=== PATIENT | female | born 2000 | race American Indian/Alaskan Native ===

== ENCOUNTER 2019-11-01 01:18 | Outpatient (CLI) | payer OTHER ==
[2019-11-01 01:30] VITALS: BP 137/78
[2019-11-01] MEDS ORDERED: LACTATED RINGERS 1,000 ML IV ONE (01:38)
[2019-11-01 02:19] LABS: Amphetamine Screen,Urine PRESUMPTIVE NEGATIVE; Benzodiazepines Screen,Urine PRESUMPTIVE NEGATIVE; Cocaine Screen,Urine PRESUMPTIVE NEGATIVE; Methadone Screen,Urine PRESUMPTIVE NEGATIVE; Opiate Screen,Urine PRESUMPTIVE NEGATIVE
[2019-11-01 02:32] LABS: Cannabinoid Screen,Urine PRESUMPTIVE POSITIVE
[2019-11-01 02:35] LABS: Bilirubin,Urine NEG (Negative); Blood,Urine NEG (Negative); Color,Urine Yellow (Yellow); Mucus,Urine FEW /HPF; Urobilinogen,Urine < 2.0 mg/dL (<2.0)
== END 2019-11-01 04:10 | disposition home or self-care (01) ==
LOC: TRG 01:18 → APU 01:25 → TRG 04:10
PROVIDERS: ATTEND Obstetrics & Gynecology
DX: O62.9 Abnormality of forces of labor, unspecified (principal); Z3A.34 34 weeks gestation of pregnancy
CPT/HCPCS: 59025; 80307; 81001; 96361; 96365; J0690; J7120; 96360

== ENCOUNTER 2020-05-15 16:52 | Emergency (ER) | payer OTHER ==
--- NOTE | 2020-05-15 18:07 | Emergency Department Report ---
HPI - General Time Seen by Provider: 05/15/20 17:32 - HPI HPI: Room 15 The patient is a 19-year-old female present with a chief complaint of altered mental status. Patient apparently has a history of PTSD and no other known psychiatric history. The mother stated that the patient had been acting strangely all day. Police were called and reportedly found out the patient had an outstanding warrant for arrest. It is then reported that the patient began behaving even more strangely after this was discovered but no specific behavior was described. The patient reportedly wandering around the emergency department touching things inappropriately. The patient tells me that she is 14 years old and she denies complaints. Patient denies thoughts of wanting to harm herself o r others ED Past Medical Hx - Past Medical History Hx Psychiatric Treatment: Yes (PTSD) - Surgical History Past Surgical History?: No - Family History Family history: no significant - Social History Smoking Status: Never Smoker Substance Use Type: None ED Review of Systems ROS: Stated complaint: MENTAL HEALTH Other details as noted in HPI Constitutional: no symptoms reported Eyes: denies: eye pain ENT: denies: throat pain Respiratory: no symptoms reported Cardiovascular: denies: chest pain Endocrine: no symptoms reported Gastrointestinal: denies: abdominal pain Genitourinary: denies: dysuria Musculoskeletal: denies: back pain Psychiatric: denies: homicidal thoughts, suicidal thoughts Physical Exam - Physical Exam Physical Exam: GENERAL: The patient is well-developed well-nourished female sitting in chair not appearing to be in acute distress HEENT: Normocephalic. Atraumatic. Extraocular motions are intact. Patient has moist mucous membranes. NECK: Supple. Trachea midline CHEST/LUNGS: Clear to auscultation. There is no respiratory distress noted. HEART/CARDIOVASCULAR: Regular. There is no tachycardia. There is no gallop rub or murmur. ABDOMEN: Abdomen is soft, nontender. Patient has normal bowel sounds. There is no abdominal distention. SKIN: There is no rash. There is no edema. There is no diaphoresis. NEURO: The patient is awake, alert, and oriented. The patient is cooperative. The patient has no focal neurologic deficits. The patient has normal speech and gait. MUSCULOSKELETAL: There is no evidence of acute injury. ED Medical Decision Making - Lab Data Result diagrams: 05/15/20 17:45 05/15/20 17:45 - Medical Decision Making Patient told mental health validation consultant Aaliyah that she is suicidal. Please refer to mental health note. Patient placed on 1013 - Differential Diagnosis PTSD, schizophrenia, adjustment disorder Critical care attestation.: If time is entered above; I have spent that time in minutes in the direct care of this critically ill patient, excluding procedure time. ED Disposition Clinical Impression: Suicidal ideation Disposition: [id number]/TX-[id number] PSY HOSP/PSY UNIT Is pt being admited?: No Does the pt Need Aspirin: No Condition: Stable
[2020-05-15 18:11] LABS: Basophils % (Auto) 0.7 % (0.0-1.8); Eosinophils # (Auto) 0.1 K/mm3 (0.0-0.4); Eosinophils % (Auto) 1.2 % (0.0-4.3); Hemoglobin 14.4 gm/dl (10.1-14.3); Lymphocytes # (Auto) 2.3 K/mm3 (1.2-5.4); Lymphocytes % (Auto) 33.8 % (13.4-35.0); Mean Corpuscular HGB Conc 34 % (30-34); Mean Corpuscular Volume 91 fl (79-97); Monocytes # (Auto) 0.6 K/mm3 (0.0-0.8); Monocytes % (Auto) 9.2 % (0.0-7.3); Platelet Count 260 K/mm3 (140-440); Red Blood Count 4.75 M/mm3 (3.65-5.03); Red Cell Distribution Width 14.2 % (13.2-15.2)
[2020-05-15 18:25] LABS: Blood Urea Nitrogen 14 mg/dL (7-17); Calcium 9.8 mg/dL (8.4-10.2); Hemolysis Index 14
[2020-05-15 18:26] LABS: BUN/Creatinine Ratio 20
[2020-05-15] MEDS ORDERED: LORazepam 2 MG/ML VIAL IM PRN (19:20)
[2020-05-15] MEDS ORDERED: diphenhydrAMINE 50 MG/ML VIAL IM PRN (19:20)
[2020-05-15] MEDS ORDERED: HALOPERIDOL LACTATE 5 MG/1 ML INJ IM PRN (19:20)
[2020-05-16 04:39] LABS: Amphetamine Screen,Urine PRESUMPTIVE NEGATIVE; Benzodiazepines Screen,Urine PRESUMPTIVE NEGATIVE; Cannabinoid Screen,Urine PRESUMPTIVE POSITIVE; Cocaine Screen,Urine PRESUMPTIVE NEGATIVE; Methadone Screen,Urine PRESUMPTIVE NEGATIVE; Opiate Screen,Urine PRESUMPTIVE NEGATIVE
[2020-05-16 04:48] LABS: Bacteria,Urine 1+ /HPF (Negative); Bilirubin,Urine NEG (Negative); Blood,Urine SM (Negative); Color,Urine Yellow (Yellow); Mucus,Urine 3+ /HPF
--- NOTE | 2020-05-16 11:08 | Consultation ---
History of Present Illness - Reason for Consult Consult date: 05/16/20 Reason for consult: PTSD, psychosis - History of Present Psychiatric Illness Amparo Vizcaino is a 19y/o female patient who presented to the ER with symptoms of PTSD. The patient states "I was freaking out and had flash backs." She says "I have PTSD from some past stuff I've been through." During my interview with the patient she is a/o x 3. She is calm and cooperative. She is lucid. The patient says "I was diagnosed with PTSD in 2017." She says other than that she doesn't have any other psych history. The patient denies SI/HI or ever feeling that way. She also denies suicidal attempt in the past. She says "I feel good now. My mental health feels good." She denies hallucinations of any kind. The patient also denies any past psychiatric admissions. She says "the only medication I take is trazodone." PAST PSYCHIATRIC HISTORY Diagnoses: PTSD Suicide attempts or Self-harm behavior: Denies Prior psychiatric hospitalizations: Denies Substance Abuse history: [place] Previous psychiatric medications tried: Trazodone Outpatient treatment: Yes PAST MEDICAL HISTORY: None reported Family Psychiatric History: None reported or documented SOCIAL HISTORY Marital Status: Single Living Arrangements: With family Employment Status: Employed Access to guns/weapons: Denies Education: High school History of Abuse: None reported Legal History: None reported REVIEW OF SYSTEMS Constitutional: Negative for weight loss ENT: Negative for stridor Respiratory: Negative for cough or hemoptysis All other systems reviewed and are negative MENTAL STATUS EXAMINATION General Appearance and Behavior: Age appropriate, wearing appropriate clothes, good eye contact, cooperative polite with questioning. Cooperation: Participating/engaged Psychomotor Behavior: unremarkable and within normal limits Mood: Good Affect and affective range: congruent with mood Thought Process: Fluent/Logical, Thought Content: Within reality, Speech: Normal volume, Regular rate and rhythm, Intellectual Functioning: Average Suicidal Ideation: Denies SI Homicidal Ideation: Denies HI Hallucinations: Denies Delusions: None elicited Impulse Control: Unimpaired Insight and Judgment: Normal insight and judgment, Memory: Normal Attention: Normal Orientation: Alert, oriented Assessment and Plan Substance Induced Mood Disorder TREATMENT No meds at times time Medical: Per primary Sitter: Defer to primary Disposition: Do not recommend acute inpatient psychiatric treatment. The patient may discharge home once medically clear. The creative specialist is to discuss safety plan, and give resources for outpatient psych and cognitive behavioral therapy The patient is to follow up in 7 to 14 days upon discharge Will sign off. Thank you for this consult Medications and Allergies Allergies Allergy/AdvReac Type Severity Reaction Status Date / Time No Known Allergies Allergy Unverified 11/01/19 01:38 Active Meds: Active Medications Diphenhydramine HCl (Benadryl) 50 mg IM Q6H PRN PRN Reason: Agitation Last Admin: 05/15/20 20:22 Dose: 50 mg Documented by: Haloperidol Lactate (Haldol) 10 mg IM Q8H PRN PRN Reason: Agitation Last Admin: 05/15/20 20:21 Dose: 10 mg Documented by: Lorazepam (Ativan) 2 mg IM Q8H PRN PRN Reason: Agitation Last Admin: 05/15/20 20:21 Dose: 2 mg Documented by: Mental Status Exam - Vital signs Last Vital Signs Temp 97.9 F 05/16/20 08:30 Pulse 74 05/16/20 08:30 Resp 16 05/16/20 09:20 BP 153/87 05/16/20 08:30 Pulse Ox 100 05/16/20 09:20 Results Result Diagrams: 05/15/20 17:45 05/15/20 17:45 Abnormal lab results 05/15/20 05/15/20 05/15/20 Range/Units 03:46 17:45 17:45 Hgb 14.4 H (10.1-14.3) gm/dl Hct 43.0 H (30.3-42.9) % [place] % (Auto) 9.2 H (0.0-7.3) % Potassium 3.1 L (3.6-5.0) mmol/L Carbon Dioxide 19 L (22-30) mmol/L Ur Specific [place] 1.031 H (1.003-1.030) Urine WBC (Auto) 50.0 H (0.0-6.0) /HPF Salicylates (2.8-20.0) mg/dL Acetaminophen (10.0-30.0) ug/mL 05/15/20 05/15/20 Range/Units 17:45 17:45 Hgb (10.1-14.3) gm/dl Hct (30.3-42.9) % [place] % (Auto) (0.0-7.3) % Potassium (3.6-5.0) mmol/L Carbon Dioxide (22-30) mmol/L Ur Specific [place] (1.003-1.030) Urine WBC (Auto) (0.0-6.0) /HPF Salicylates < 0.3 L (2.8-20.0) mg/dL Acetaminophen 5.0 L (10.0-30.0) ug/mL All other labs normal.
[2020-05-16 17:15] VITALS: BP 108/68
== END 2020-05-16 17:14 | disposition home or self-care (01) ==
LOC: EEVIPCON 16:52 → ED 16:52
DX: R45.851 Suicidal ideations (principal); Z98.890 Other specified postprocedural states
CPT/HCPCS: 36415; 80048; 80307; 81001; 84703; 85025; 87086; 96372; 99285; J1200; J1630; J2060; 80320; G0480